=== PATIENT | male | born 1975 | race Caucasian/White ===

== ENCOUNTER 2018-08-24 10:06 | Emergency (ER) | payer MEDICAID ==
[~2018-08-24] VITALS: Ht 162.6 cm; Wt 79.4 kg
[2018-08-24 10:06] VITALS: BP 125/74
--- NOTE | 2018-08-24 10:42 | NUR ---
RADIOLOGY AT BEDSIDE FOR XRAY.
--- NOTE | 2018-08-24 12:07 | NUR ---
Patient discharged to home in stable condition. Written and verbal after care instructions given. Patient verbalizes understanding of instruction.
== END 2018-08-24 11:50 | disposition home or self-care (01) ==
LOC: ER 10:13
DX: M79.671 Pain in right foot (principal)
CPT/HCPCS: 73630-TC

== ENCOUNTER 2024-06-23 18:38 | Emergency (ER) | payer MEDICAID ==
[~2024-06-23] VITALS: Ht 162.6 cm; Wt 79.4 kg
[2024-06-23 19:30] VITALS: TEMP 97.7
[2024-06-23] MEDS ORDERED: GUAI1TBM19 PO (21:12)
[2024-06-23] MEDS ORDERED: BENZ-13 PO (21:12)
[2024-06-23 21:15] VITALS: BP 121/68; O2SAT 96
== END 2024-06-23 21:19 | disposition home or self-care (01) ==
LOC: ER 18:38
DX: J06.9 Acute upper respiratory infection, unspecified (principal); B97.89 Other viral agents as the cause of diseases classified elsewhere; R05.9 Cough, unspecified; Z20.822 Contact with and (suspected) exposure to COVID-19
CPT/HCPCS: 71045-TC